=== PATIENT | female | born 1965 | race Caucasian/White ===

== ENCOUNTER 2024-09-05 16:27 | Inpatient (IN) | payer OTHER ==
[~2024-09-05] VITALS: Ht 162.6 cm; Wt 77.6 kg
[2024-09-05] MEDS: IV NS 0.9% 500 ML BAG IV ONE (17:36)
[2024-09-05 18:32] LABS: BASOPHILS # (AUTO) 0.1 K/uL (0.0-0.2); BASOPHILS % (AUTO) 1.6 % (0.0-2.0); EOSINOPHILS % (AUTO) 0.6 % (0.0-6.0); HEMATOCRIT 32 % (33-45); HEMOGLOBIN 10.7 g/dL (11.5-14.8); LYMPHOCYTES # (AUTO) 1.5 K/uL (0.8-4.8); LYMPHOCYTES % (AUTO) 27.6 % (20.0-44.0); MEAN CORPUSCULAR HEMOGLOBIN 36 PG (26.0-33.0); MEAN CORPUSCULAR HGB CONC 34 g/dl (31.0-36.0); MEAN CORPUSCULAR VOLUME 105 fL (82-100); MONOCYTES # (AUTO) 0.2 K/uL (0.1-1.30); MONOCYTES % (AUTO) 4.3 % (2.0-12.0); NEUTROPHILS # (AUTO) 3.6 K/uL (1.8-8.9); NEUTROPHILS % (AUTO) 65.9 % (43.0-81.0); PLATELET COUNT (AUTO) 224 K/uL (150-450); RED BLOOD CELL COUNT(AUTO) 3.01 MIL/uL (4.0-5.2); RED CELL DISTRIBUTION WIDTH 22.9 % (11.5-15.0); WHITE BLOOD COUNT (AUTO) 5.4 K/uL (4.3-11.0)
[2024-09-05 18:46] LABS: INR 3.23 (0.91-1.10); PROTHROMBIN TIME 31.7 SECS (9.2-11.1)
[2024-09-05 18:47] LABS: CALCIUM, SERUM 8.1 mg/dL (8.5-10.1); CARBON DIOXIDE 23 mmol/L (21-32); CHLORIDE 103 mmol/L (98-107); CREATININE 1.1 mg/dL (0.6-1.3); GLUCOSE 117 mg/dL (74-106); SODIUM SERUM 140 mmol/L (136-145); UREA NITROGEN, BLOOD 9 mg/dL (7-18)
[2024-09-05 18:53] LABS: SERUM AMMONIA < 10 umol/L (11-32)
[2024-09-05 18:59] LABS: ALANINE AMINOTRANSFERASE 851 U/L (12-78); ALBUMIN 1.6 g/dL (3.4-5.0); ALCOHOL, BLOOD < 3 mg/dL (0-10); ALKALINE PHOSPHATASE 297 U/L (46-116); BILIRUBIN,DIRECT 6.9 mg/dL (0.0-0.2); BILIRUBIN,TOTAL 8.1 mg/dL (0.2-1.0); POTASSIUM 2.4 mmol/L (3.5-5.1); TOTAL PROTEIN, SERUM 4.6 g/dL (6.4-8.2)
[2024-09-05] MEDS ORDERED: IV PREMIX 0.45% NS + KCL 1,000 ML IV ONE (19:00)
[2024-09-05 19:01] LABS: ASPARTATE AMINOTRANSFERASE > 1000 U/L (15-37)
[2024-09-05] MEDS ORDERED: POTASSIUM CHLORIDE 20 MEQ TAB.PRT.SR PO ONE (19:05)
[2024-09-05 19:09] LABS: LYMPHOCYTES % (MANUAL) 18 % (16-48); MONOCYTES % (MANUAL) 3 % (0-11.0); NEUTROPHILS % (MANUAL) 79 (42-76)
[2024-09-05 19:10] LABS: ANISOCYTOSIS 1+; PLATELET ESTIMATE ADEQUATE
[2024-09-05] MEDS: POTASSIUM CHLORIDE 20 MEQ TAB.PRT.SR PO ONE (19:17)
[2024-09-05] MEDS: IV PREMIX D5 1/2NS + KCL 1,000 ML IV ONE (19:25)
[2024-09-05] MEDS: THYROID 30 MG TABLET PO SCH (19:43)
[2024-09-05 19:49] LABS: APPEARANCE,URINE CLEAR (CLEAR); BILIRUBIN,URINE 3+ (NEGATIVE); BLOOD, URINE NEGATIVE Ery/uL (NEGATIVE); KETONES,URINE TRACE mg/dL (NEGATIVE); LEUKOCYTE ESTERASE ,URINE NEGATIVE (NEGATIVE); NITRITE, URINE POSITIVE (NEGATIVE); PH,URINE 5.5 (5.0-8.0); PROTEIN,URINE TRACE mg/dl (NEGATIVE); UGLUCOSE NEGATIVE (NEGATIVE)
[2024-09-05 19:50] LABS: COLOR,URINE AMBER (YELLOW)
[2024-09-05 20:30] LABS: RBC,URINE 0-2 /HPF (0-2)
[2024-09-05] MEDS ORDERED: Z GUARD REMEDY 4 OZ OINT TP PRN (20:30)
[2024-09-05] MEDS ORDERED: MAG HYDROX/AL HYDROX/SIMETH 30 ML UDC PO PRN (20:30)
[2024-09-05] MEDS ORDERED: MAGNESIUM HYDROXIDE 30 ML UDC PO PRN (20:30)
[2024-09-05 20:32] LABS: ADD URINE CULTURE YES; BACTERIA,URINE Few /HPF (None Seen); WBC,URINE NONE SEEN /HPF (0-3)
[2024-09-05] MEDS ORDERED: ONDANSETRON HCL/PF 4 MG/2 ML VIAL IVP PRN (20:36)
[2024-09-05] MEDS ORDERED: ALBUMIN 25% 50 ML IV ONE ×2 (20:51→20:53)
[2024-09-05] MEDS: ALBUMIN 25% 12.5 GM/50 ML BOTTLE IV ONE (21:06)
[2024-09-05] MEDS: CEFTRIAXONE 1 G in IV D5W 50 ML IV SCH (23:00)
[2024-09-05] MEDS: IV NS 0.9% 1,000 ML IV PRN (23:01)
[2024-09-05] MEDS: CEFTRIAXONE 1GM BAG (ER ONLY) 50 ML IV ONE (23:12)
[2024-09-06] VITALS (54 sets, daily range): BP systolic 54–158; BP diastolic 22–142; TEMP 96.4–98.1; O2SAT 93–100
[2024-09-06] MEDS: MIDODRINE HCL (5MG) 5 MG TABLET PO SCH (00:54)
[2024-09-06] MEDS: POTASSIUM CHLORIDE 20 MEQ TAB.PRT.SR PO SCH (00:54)
[2024-09-06 07:40] LABS: CALCIUM, SERUM 7.3 mg/dL (8.5-10.1); MAGNESIUM 1.6 mg/dL (1.8-2.4); PHOSPHORUS 2.3 mg/dL (2.5-4.9); POTASSIUM 3.8 mmol/L (3.5-5.1)
[2024-09-06] MEDS: PANTOPRAZOLE 40 MG TABLET.DR PO SCH (08:12)
[2024-09-06] MEDS: THIAMINE HCL 100 MG TABLET PO SCH (08:12)
[2024-09-06 08:29] LABS: BASOPHILS # (AUTO) 0.1 K/uL (0.0-0.2); BASOPHILS % (AUTO) 1.8 % (0.0-2.0); EOSINOPHILS # (AUTO) 0.1 K/uL (0.0-0.7); EOSINOPHILS % (AUTO) 0.9 % (0.0-6.0); HEMATOCRIT 32 % (33-45); HEMOGLOBIN 10.5 g/dL (11.5-14.8); LYMPHOCYTES # (AUTO) 0.8 K/uL (0.8-4.8); LYMPHOCYTES % (AUTO) 11.8 % (20.0-44.0); MEAN CORPUSCULAR HEMOGLOBIN 35 PG (26.0-33.0); MEAN CORPUSCULAR HGB CONC 33 g/dl (31.0-36.0); MEAN CORPUSCULAR VOLUME 108 fL (82-100); MONOCYTES # (AUTO) 0.4 K/uL (0.1-1.30); MONOCYTES % (AUTO) 5.8 % (2.0-12.0); NEUTROPHILS # (AUTO) 5.4 K/uL (1.8-8.9); NEUTROPHILS % (AUTO) 79.7 % (43.0-81.0); PLATELET COUNT (AUTO) 182 K/uL (150-450); RED BLOOD CELL COUNT(AUTO) 2.96 MIL/uL (4.0-5.2); RED CELL DISTRIBUTION WIDTH 22.9 % (11.5-15.0); WHITE BLOOD COUNT (AUTO) 6.7 K/uL (4.3-11.0)
[2024-09-06] MEDS ORDERED: ALBUMIN 25% 12.5 GM/50 ML BOTTLE IV ONE (10:00)
[2024-09-06] MEDS: ALBUMIN 25% 25 GM in PREMIX 1 EA IV ONE (10:38)
[2024-09-06] MEDS ORDERED: ZINC1CAP3 PO (11:00)
[2024-09-06] MEDS ORDERED: ATOR80TA PO (11:00)
[2024-09-06] MEDS ORDERED: [UNRECOGNIZED DRUG - CODE] PO (11:00)
[2024-09-06] MEDS ORDERED: FENO145T21 PO (11:00)
[2024-09-06] MEDS ORDERED: ASCO500T23 PO (11:00)
[2024-09-06] MEDS ORDERED: ESCI10TA PO (11:00)
[2024-09-06] MEDS ORDERED: THIA100T88 PO (11:00)
[2024-09-06] MEDS: NOREPINEPHRINE 8 MG in IV D5W 242 ML IV PRN (11:33)
[2024-09-06] MEDS: MAGNESIUM OXIDE 400 MG TABLET PO ONE (12:45)
[2024-09-06] MEDS ORDERED: CT SWABBABLE VALVE TRANS SET 1 EA INFUS.SET MC ONE (13:45)
[2024-09-06] MEDS ORDERED: IOHEXOL-300 100 ML VIAL IV ONE (13:45)
[2024-09-06] MEDS ORDERED: IV NS 0.9% 250 ML IV ONE (13:46)
[2024-09-06 14:31] LABS: ALANINE AMINOTRANSFERASE 1427 U/L (12-78); ALBUMIN 2.7 g/dL (3.4-5.0); ALKALINE PHOSPHATASE 301 U/L (46-116); ASPARTATE AMINOTRANSFERASE > 1000 U/L (15-37); BILIRUBIN,DIRECT 7.5 mg/dL (0.0-0.2); BILIRUBIN,TOTAL 9.6 mg/dL (0.2-1.0); TOTAL PROTEIN, SERUM 5.1 g/dL (6.4-8.2)
[2024-09-06 14:33] LABS: SERUM AMMONIA < 10 umol/L (11-32)
[2024-09-06 14:36] LABS: LACTIC ACID 9.6 mmol/L (0.4-2.0)
[2024-09-06] MEDS: K PHOS NEUTRAL 250 MG TABLET PO ONE (15:51)
[2024-09-06] MEDS: IV D5/0.45 NACL 1,000 ML IV PRN (18:02)
[2024-09-06] MEDS: VANCOMYCIN 750 MG in IV D5W 250 ML IV ONE (19:45)
[2024-09-06] MEDS: MEROPENEM 1 G in IV NS 0.9% 100 ML IV SCH (23:43)
[2024-09-07] VITALS (90 sets, daily range): BP systolic 54–152; BP diastolic 24–126; TEMP 96.5–98.6; O2SAT 89–100
[2024-09-07 04:42] LABS: CALCIUM, SERUM 7.4 mg/dL (8.5-10.1); CREATININE 1.3 mg/dL (0.6-1.3); MAGNESIUM 1.5 mg/dL (1.8-2.4); PHOSPHORUS 3.4 mg/dL (2.5-4.9); POTASSIUM 4.1 mmol/L (3.5-5.1)
[2024-09-07 04:49] LABS: LIPASE 72 U/L (16-77)
[2024-09-07 05:49] LABS: CHOLESTEROL 460 mg/dL (<200); HDL CHOLESTEROL 35 mg/dL (40-60); LDL 395 mg/dL (0-99); TRIGLYCERIDES 107 mg/dL (30-150)
[2024-09-07] MEDS: NOREPINEPHRINE 8MG/250ML RTU 250 ML IV ONE (06:40)
[2024-09-07] MEDS: VANCOMYCIN 750 MG in IV D5W 250 ML IV SCH (08:29)
[2024-09-07] MEDS: MAGNESIUM OXIDE 400 MG TABLET PO ONE (10:22)
[2024-09-07] MEDS ORDERED: PHENYLEPHRINE 10 MG/ML VIAL IV ONE (11:00)
[2024-09-07 11:50] LABS: BASOPHILS # (AUTO) 0.1 K/uL (0.0-0.2); BASOPHILS % (AUTO) 1.3 % (0.0-2.0); EOSINOPHILS % (AUTO) 0.3 % (0.0-6.0); HEMATOCRIT 30 % (33-45); HEMOGLOBIN 9.8 g/dL (11.5-14.8); LYMPHOCYTES # (AUTO) 0.5 K/uL (0.8-4.8); MEAN CORPUSCULAR HEMOGLOBIN 36 PG (26.0-33.0); MEAN CORPUSCULAR HGB CONC 33 g/dl (31.0-36.0); MEAN CORPUSCULAR VOLUME 108 fL (82-100); MONOCYTES # (AUTO) 0.4 K/uL (0.1-1.30); MONOCYTES % (AUTO) 4.2 % (2.0-12.0); NEUTROPHILS # (AUTO) 9.3 K/uL (1.8-8.9); NEUTROPHILS % (AUTO) 89.2 % (43.0-81.0); PLATELET COUNT (AUTO) 183 K/uL (150-450); RED BLOOD CELL COUNT(AUTO) 2.75 MIL/uL (4.0-5.2); RED CELL DISTRIBUTION WIDTH 23.5 % (11.5-15.0); WHITE BLOOD COUNT (AUTO) 10.4 K/uL (4.3-11.0)
[2024-09-07] MEDS ORDERED: PHENYLEPHRINE 10 MG/ML VIAL IV PRN (12:00)
[2024-09-07 12:36] LABS: ALANINE AMINOTRANSFERASE 2278 U/L (12-78); ALBUMIN 1.9 g/dL (3.4-5.0); ALKALINE PHOSPHATASE 348 U/L (46-116); BILIRUBIN,DIRECT 7.5 mg/dL (0.0-0.2); BILIRUBIN,TOTAL 10.9 mg/dL (0.2-1.0); TOTAL PROTEIN, SERUM 4.3 g/dL (6.4-8.2)
[2024-09-07 13:33] LABS: ASPARTATE AMINOTRANSFERASE > 1000 U/L (15-37)
[2024-09-07] MEDS: LACTULOSE 10 G/15 ML UDC (PYXIS) PO SCH (13:44)
[2024-09-07] MEDS: PHENYLEPHRINE 50 MG in IV NS 0.9% 245 ML IV PRN (15:20)
[2024-09-07] MEDS: MEROPENEM 1 G in IV NS 0.9% 100 ML IV SCH (16:01)
[2024-09-07] MEDS: RIFAXIMIN 550 MG TABLET PO SCH (16:03)
[2024-09-07 16:21] LABS: THYROID STIMULATING HORMONE 3.36 uIU/mL (0.358-3.74)
[2024-09-07 19:15] LABS: BAND % (MANUAL) 1 % (0.0-5.0); LYMPHOCYTES % (MANUAL) 6 % (16-48); MONOCYTES % (MANUAL) 1 % (0-11.0); NEUTROPHILS % (MANUAL) 92 (42-76); PLATELET ESTIMATE ADEQUATE
[2024-09-07 19:16] LABS: ANISOCYTOSIS 2+
[2024-09-07] MEDS: OLANZAPINE ZYDIS 5 MG TAB.RAPDIS PO SCH (21:38)
[2024-09-07] MEDS: MIRTAZAPINE SOLUTAB 15 MG/UDTABLET TAB.RAPDIS PO SCH (21:39)
[2024-09-08] VITALS (88 sets, daily range): BP systolic 41–157; BP diastolic 20–138; TEMP 96.5–97; O2SAT 80–100
[2024-09-08 05:12] LABS: HBSAG SCREEN Negative (Negative); HEPATITIS A AB, IgM Negative (Negative); HEPATITIS B CORE AB, IgM Negative (Negative)
[2024-09-08 12:38] LABS: BASOPHILS % (AUTO) 0.4 % (0.0-2.0); EOSINOPHILS % (AUTO) 0.6 % (0.0-6.0); HEMATOCRIT 26 % (33-45); HEMOGLOBIN 8.6 g/dL (11.5-14.8); LYMPHOCYTES # (AUTO) 2.1 K/uL (0.8-4.8); LYMPHOCYTES % (AUTO) 38.9 % (20.0-44.0); MEAN CORPUSCULAR HEMOGLOBIN 36 PG (26.0-33.0); MEAN CORPUSCULAR HGB CONC 34 g/dl (31.0-36.0); MEAN CORPUSCULAR VOLUME 107 fL (82-100); MONOCYTES # (AUTO) 0.2 K/uL (0.1-1.30); MONOCYTES % (AUTO) 2.9 % (2.0-12.0); NEUTROPHILS # (AUTO) 3.2 K/uL (1.8-8.9); NEUTROPHILS % (AUTO) 57.2 % (43.0-81.0); PLATELET COUNT (AUTO) 94 K/uL (150-450); RED BLOOD CELL COUNT(AUTO) 2.41 MIL/uL (4.0-5.2); RED CELL DISTRIBUTION WIDTH 22.8 % (11.5-15.0); WHITE BLOOD COUNT (AUTO) 5.5 K/uL (4.3-11.0)
[2024-09-08] MEDS: ALBUMIN 25% 25 GM in PREMIX 1 EA IV SCH (12:44)
[2024-09-08 12:53] LABS: ALANINE AMINOTRANSFERASE 2197 U/L (12-78); ALBUMIN 1.5 g/dL (3.4-5.0); ALKALINE PHOSPHATASE 374 U/L (46-116); BILIRUBIN,DIRECT 7.9 mg/dL (0.0-0.2); CALCIUM, SERUM 6.8 mg/dL (8.5-10.1); CARBON DIOXIDE 15 mmol/L (21-32); CHLORIDE 104 mmol/L (98-107); CREATININE 1.8 mg/dL (0.6-1.3); GLUCOSE 116 mg/dL (74-106); MAGNESIUM 1.3 mg/dL (1.8-2.4); TOTAL PROTEIN, SERUM 3.6 g/dL (6.4-8.2); UREA NITROGEN, BLOOD 10 mg/dL (7-18)
[2024-09-08] MEDS: LIDOCAINE /MPF 1% VIAL 5 ML VIAL IJ ONE (13:00)
[2024-09-08 13:10] LABS: SODIUM SERUM 136 mmol/L (136-145)
[2024-09-08 13:14] LABS: ASPARTATE AMINOTRANSFERASE > 1000 U/L (15-37)
[2024-09-08 13:19] LABS: VANCOMYCIN,TROUGH 35 ug/ml (10-20)
[2024-09-08 13:20] LABS: POTASSIUM 2.8 mmol/L (3.5-5.1)
[2024-09-08] MEDS: LIDOCAINE HCL/MPF 1% 30 ML VIAL IJ ONE (14:04)
[2024-09-08 14:39] LABS: PROTHROMBIN TIME > 100.0 SECS (9.2-11.1)
[2024-09-08 14:45] LABS: INR > 10.00 (0.91-1.10); PARTIAL THROMBOPLASTIN TIME 108.9 SEC (24.3-34.3)
[2024-09-08] MEDS: MICAFUNGIN SODIUM 100 MG in IV NS 0.9% 100 ML IV SCH (15:21)
[2024-09-08] MEDS ORDERED: PHYTONADIONE 10 MG in IV D5W 50 ML SQ ONE (15:30)
[2024-09-08] MEDS ORDERED: PHYTONADIONE INJ 10 MG/1 ML AMPUL IV SCH (15:30)
[2024-09-08 15:36] LABS: ALBUMIN 1.5 g/dL (3.4-5.0); BILIRUBIN,TOTAL 9.9 mg/dL (0.2-1.0); CALCIUM, SERUM 6.8 mg/dL (8.5-10.1); CREATININE 1.8 mg/dL (0.6-1.3); PHOSPHORUS 2.9 mg/dL (2.5-4.9); POTASSIUM 2.9 mmol/L (3.5-5.1); TOTAL PROTEIN, SERUM 3.6 g/dL (6.4-8.2)
[2024-09-08 15:44] LABS: MAGNESIUM 1.2 mg/dL (1.8-2.4)
[2024-09-08] MEDS: PHYTONADIONE 10 MG in IV D5W 50 ML IV ONE (15:52)
[2024-09-08 17:37] LABS: ACETAMINOPHEN <10 ug/ml (10-30)
[2024-09-08 19:46] LABS: IRON, SERUM 132 ug/dl (50-175)
[2024-09-08] MEDS: prednisoLONE 15 MG/5 ML UDC PO SCH (20:17)
[2024-09-08] MEDS: diphenhydrAMINE HCL 50 MG/ML VIAL ONE (22:52)
[2024-09-08] MEDS: ACETAMINOPHEN 325 MG TABLET PO ONE (22:55)
[2024-09-08] MEDS: diphenhydrAMINE HCL 50 MG/ML VIAL IV ONE (22:55)
[2024-09-08] MEDS: ACETAMINOPHEN 325 MG TABLET ONE (22:56)
[2024-09-08] MEDS ORDERED: MAGNESIUM OXIDE 400 MG TABLET PO SCH (23:00)
[2024-09-08] MEDS ORDERED: POTASSIUM CHLORIDE 20 MEQ TAB.PRT.SR PO ONE (23:00)
[2024-09-08] MEDS: POTASSIUM CL. PREMIX PERIPHER. 50 ML IV SCH (23:15)
[2024-09-09] VITALS (96 sets, daily range): BP systolic 58–161; BP diastolic 23–123; TEMP 95.3–97.9; O2SAT 93–100
[2024-09-09] MEDS: ALBUMIN 25% 50 ML IV ONE ×2 (01:34→06:27)
[2024-09-09] MEDS: Magnesium 1GM/D5W 100ML PREMIX 100 ML IV SCH (01:47)
[2024-09-09 06:14] LABS: ANISOCYTOSIS 1+; BASOPHILS % (MANUAL) 0 % (0.0-2.0); EOSINOPHILS % (MANUAL) 0 % (0-4); LYMPHOCYTES % (MANUAL) 35 % (16-48); MONOCYTES % (MANUAL) 4 % (0-11.0); NEUTROPHILS % (MANUAL) 61 (42-76); PLATELET ESTIMATE DECREASED
[2024-09-09 07:23] LABS: BASOPHILS # (AUTO) 0.1 K/uL (0.0-0.2); BASOPHILS % (AUTO) 1.4 % (0.0-2.0); EOSINOPHILS % (AUTO) 0.8 % (0.0-6.0); LYMPHOCYTES # (AUTO) 0.2 K/uL (0.8-4.8); LYMPHOCYTES % (AUTO) 6.1 % (20.0-44.0); MEAN CORPUSCULAR HEMOGLOBIN 36 PG (26.0-33.0); MEAN CORPUSCULAR HGB CONC 34 g/dl (31.0-36.0); MEAN CORPUSCULAR VOLUME 104 fL (82-100); MONOCYTES # (AUTO) 0.2 K/uL (0.1-1.30); MONOCYTES % (AUTO) 4.2 % (2.0-12.0); NEUTROPHILS # (AUTO) 3.5 K/uL (1.8-8.9); NEUTROPHILS % (AUTO) 87.5 % (43.0-81.0)
[2024-09-09 07:45] LABS: INR 2.08 (0.91-1.10); PARTIAL THROMBOPLASTIN TIME 70.2 SEC (24.3-34.3)
[2024-09-09 07:56] LABS: D-DIMER 17.46 mg/L(FEU (0.17-0.50)
[2024-09-09] MEDS ORDERED: VANCOMYCIN 1 GM in IV D5W 250ml IV SCH (08:00)
[2024-09-09 08:05] LABS: CREATINE KINASE, TOTAL 268 U/L (26-192)
[2024-09-09 08:11] LABS: FOLIC ACID 7.5 ng/mL (>3.0)
[2024-09-09 08:12] LABS: ALANINE AMINOTRANSFERASE 1128 U/L (12-78); ALBUMIN 4.7 g/dL (3.4-5.0); ALKALINE PHOSPHATASE 256 U/L (46-116); BILIRUBIN,TOTAL 8.5 mg/dL (0.2-1.0); CALCIUM, SERUM 6.6 mg/dL (8.5-10.1); CARBON DIOXIDE 16 mmol/L (21-32); CHLORIDE 103 mmol/L (98-107); CREATININE 1.8 mg/dL (0.6-1.3); GLUCOSE 106 mg/dL (74-106); MAGNESIUM 1.8 mg/dL (1.8-2.4); PHOSPHORUS 3.4 mg/dL (2.5-4.9); POTASSIUM 2.9 mmol/L (3.5-5.1); SODIUM SERUM 138 mmol/L (136-145); TOTAL PROTEIN, SERUM 6.3 g/dL (6.4-8.2); UREA NITROGEN, BLOOD 9 mg/dL (7-18)
[2024-09-09 08:36] LABS: ASPARTATE AMINOTRANSFERASE > 1000 U/L (15-37)
[2024-09-09 08:46] LABS: RED BLOOD CELL COUNT(AUTO) 1.71 MIL/uL (4.0-5.2)
[2024-09-09 08:48] LABS: HEMATOCRIT 18 % (33-45); HEMOGLOBIN 6.1 g/dL (11.5-14.8); PLATELET COUNT (AUTO) 52 K/uL (150-450)
[2024-09-09] MEDS ORDERED: PHENYLEPHRINE 100 MG in IV NS 0.9% 240 ML IV PRN (09:00)
[2024-09-09] MEDS: POTASSIUM CL. PREMIX PERIPHER. 50 ML IV SCH (10:56)
[2024-09-09 11:04] LABS: EOSINOPHILS % (MANUAL) 2 % (0-4); LYMPHOCYTES % (MANUAL) 6 % (16-48); MONOCYTES % (MANUAL) 1 % (0-11.0); NEUTROPHILS % (MANUAL) 91 (42-76)
[2024-09-09] MEDS: IV NS 0.9% 250 ML IV PRN (11:24)
[2024-09-09 11:48] LABS: FERRITIN > 1000 ng/mL (8-388)
[2024-09-09 12:36] LABS: PLATELET ESTIMATE DECREASED
[2024-09-09] MEDS: MORPHINE SULFATE PF DRIP 100 MG in IV D5W 96 ML IV PRN (12:47)
[2024-09-09] MEDS: LORAZEPAM INJ 2 MG/ML VIAL IV PRN (12:59)
[2024-09-09 16:07] LABS: HIV-1 p24 ANTIGEN NON REACTIVE (NONREACTIVE); HIV-1/2 ANTIBODY NON REACTIVE (NONREACTIVE)
[2024-09-09] MEDS: KEY,NONCONTROL,TO KEEP IN PYXI 1 EA MC ONE (21:49)
[2024-09-10 04:07] LABS: HEPATITIS B CORE AB, TOTAL Negative (Negative); HEPATITIS B SURFACE AB Reactive (.)
[2024-09-10 05:11] LABS: FOLIC ACID 7.3 ng/mL (>3.0)
[2024-09-10 05:11] LABS: PTH, INTACT 491 pg/mL (15-65)
[2024-09-10 08:00] VITALS: BP 61/20; TEMP 97.1; O2SAT 98
[2024-09-10] MEDS: KEY,NONCONTROL,TO KEEP IN PYXI 1 EA MC ONE ×3 (08:02→18:47)
[2024-09-10 08:07] LABS: IMMUNOGLOBULIN A, SERUM 178 mg/dL (87-352); IMMUNOGLOBULIN G, SERUM 571 mg/dL (586-1602); IMMUNOGLOBULIN M, SERUM 304 mg/dL (26-217)
[2024-09-10 11:07] LABS: FREE KAPPA LT CHAINS SERUM 29.4 mg/L (3.3-19.4); FREE LAMBDA LT CHAIN SERUM 39.7 mg/L (5.7-26.3); KAPPA/LAMBDA RATIO SERUM 0.74 (0.26-1.65)
[2024-09-10 16:00] VITALS: BP_SYST 53; BP_SYST 58; BP_DIAS 31; TEMP 89.7; O2SAT 96
[2024-09-10] MEDS: MORPHINE SULFATE PF DRIP 250 MG in IV D5W 240 ML IV PRN (18:37)
[2024-09-10 20:00] VITALS: BP 105/19; TEMP 97; O2SAT 94
[2024-09-11] VITALS: BP 62/24; O2SAT 90
[2024-09-11 09:28] VITALS: BP 131/80; TEMP 97.9; O2SAT 98
[2024-09-11 16:24] VITALS: BP 49/28; TEMP 93.7; O2SAT 94
[2024-09-11 21:38] VITALS: BP 36/18; TEMP 88.5
[2024-09-12] MEDS ORDERED: KEY,NONCONTROL,TO KEEP IN PYXI 1 EA MC ONE (05:08)
[2024-09-13 06:07] LABS: *SPE A/G RATIO 1.2 (0.7-1.7); *SPE ALPHA-1-GLOBULIN 0.1 g/dL (0.0-0.4); *SPE ALPHA-2-GLOBULIN 0.6 g/dL (0.4-1.0); *SPE BETA GLOBULIN 0.3 g/dL (0.7-1.3); *SPE GLOBULIN, TOTAL 1.7 g/dL (2.2-3.9); *SPE M-SPIKE Not Observed g/dL (Not Observed); *SPE PROTEIN TOTAL 3.7 g/dL (6.0-8.5); *SPEGAMMA GLOBULIN 0.7 g/dL (0.4-1.8)
[2024-09-13 06:07] LABS: *SPE A/G RATIO 1.9 (0.7-1.7); *SPE ALBUMIN 3.8 g/dL (2.9-4.4); *SPE ALPHA-1-GLOBULIN 0.1 g/dL (0.0-0.4); *SPE ALPHA-2-GLOBULIN 0.4 g/dL (0.4-1.0); *SPE BETA GLOBULIN 0.8 g/dL (0.7-1.3); *SPE M-SPIKE Not Observed g/dL (Not Observed); *SPE PROTEIN TOTAL 5.8 g/dL (6.0-8.5); *SPEGAMMA GLOBULIN 0.7 g/dL (0.4-1.8)
[2024-09-13 17:07] LABS: VITAMIN B1 THIAMINE,WB 233.4 nmol/L (66.5-200.0)
== END 2024-09-12 02:38 | DRG 871 ==
LOC: ER 16:30 → TELE1 20:24 → TELE-TD 22:11 → ICU 09-06 10:34 → MED 09-09 19:00
PROVIDERS: ADMIT Nurse Practitioner Acute Care; ATTEND Nurse Practitioner Family
PROC: 30233K1 Transfusion of Nonautologous Frozen Plasma into Peripheral Vein, Percutaneous Approach (ICD-10-PCS; principal; 2024-09-08)
PROC: 30233M1 Transfusion of Nonautologous Plasma Cryoprecipitate into Peripheral Vein, Percutaneous Approach (ICD-10-PCS; 2024-09-08)
DX: A41.9 Sepsis, unspecified organism (principal); G92.8 Other toxic encephalopathy; N17.0 Acute kidney failure with tubular necrosis; E87.20 Acidosis, unspecified; D68.9 Coagulation defect, unspecified; K86.1 Other chronic pancreatitis; G93.49 Other encephalopathy; R62.7 Adult failure to thrive; K70.10 Alcoholic hepatitis without ascites; K70.30 Alcoholic cirrhosis of liver without ascites; K76.0 Fatty (change of) liver, not elsewhere classified; F32.A Depression, unspecified; F10.20 Alcohol dependence, uncomplicated; Y90.0 Blood alcohol level of less than 20 mg/100 ml; E87.6 Hypokalemia; D53.9 Nutritional anemia, unspecified; Z74.09 Other reduced mobility; Z74.01 Bed confinement status; Z51.5 Encounter for palliative care; E80.6 Other disorders of bilirubin metabolism; K76.82 Hepatic encephalopathy; K70.40 Alcoholic hepatic failure without coma; K52.9 Noninfective gastroenteritis and colitis, unspecified; E83.42 Hypomagnesemia; D69.6 Thrombocytopenia, unspecified; R19.09 Other intra-abdominal and pelvic swelling, mass and lump; M89.8X9 Other specified disorders of bone, unspecified site; R32 Unspecified urinary incontinence; K82.8 Other specified diseases of gallbladder; M89.9 Disorder of bone, unspecified; F29 Unspecified psychosis not due to a substance or known physiological condition; F39 Unspecified mood [affective] disorder; K57.90 Diverticulosis of intestine, part unspecified, without perforation or abscess without bleeding
CPT/HCPCS: 36415; 70450-TC; 71045-TC; 76700-TC; 76770-TC; 76856-TC; 80048-TC; 80053-TC; 80061-TC; 80076-TC; 80202-TC; 81001; 82140-TC; 82378; 82550-TC; 82553; 82607-TC; 82728-TC; 82784; 83540-TC; 83605-TC; 83690-TC; 83735-TC; 83921; 83970; 84100-TC; 84155; 84165; 84425; 84439-TC; 84443-TC; 84484-TC; 85025-TC; 85385-TC; 85396; 85610-TC; 85730-TC; 86304; 86334; 86704; 86706; 86803; 86850-TC; 87040-TC; 87081-TC; 87086-TC; 87340; 87806; 87899; 97110-TC; 97112-TC; 97530-TC; A4216; A4223; A6253; G0378; G0480; J0696; J1200; J2060; J2185; J2248; J2274; J3370; J3371; J3430; J3475; J3480; J3490; J7030; J7040; J7050; J7060; J7510; P9012; P9017; P9047; Q9967